=== PATIENT | male | born 1945 | race Caucasian/White ===

== ENCOUNTER 2016-12-19 08:07 | Outpatient (CLI) | payer MEDICARE ==
[~2016-12-19] VITALS: Ht 177.8 cm; Wt 102.3 kg
--- NOTE | ~2016-12-19 | HEMODYNAMI ---
PATIENT:ALICE MERCADO MEDICAL RECORD: [id number] : 49 LOCATION:[facility] ADMISSION DATE: 12/19/16 Generatedon:12/19/201610:09 Patient name: ALICE MERCADO Patient #: [id number] SSN: DO B: 1945 Date of study: 12/19/2016 Page: Of Hemodynamic Procedure Report Patient Data Patient Demographics Procedure consent was obtained First Name: ALICE Gender: Male Last Name: ROGELIO : 1945 [facility] Initial: L Age: 71 year(s) Patient #: [id number] Race: Unknown Additional ID: [id number] Contact details [address]: [address] [place] [address] [place] State: [place] City: [place] Zip code: [address] Past Medical History Allergies: No known allergies Admission Admission Data Admission Date: 12/19/2016 Admission Time: 8:07 Admit Source: Other Lab Results Lab Result Date: 12/19/2016 Lab Result Time: 8:45 Biochemistry Name Units Result Min Max BUN mg/dl 19 --(----)*- 7 18 Creatinine mg/dl 1 --(--*-)-- 0.6 1.3 CBC Name Units Result Min Max Hematocrit % 44.4 --(*---)-- 42 54 Hemoglobin g/dl 15.3 --(-*--)-- 13.5 17.5 Procedure Procedure Types Cath Procedure Diagnostic Procedure C [place] w/Coronaries PCI Procedure Coronary Stent Initial Miscellaneous Procedures Moderate Sedation up to 30 minutes Procedure Description Procedure Date Procedure Date: 12/19/2016 Procedure Start Time: 9:39 Procedure End Time: 10:06 Procedure Staff Name Function Aliza Gandhi RT Scrub Cullen Gamez RN Linotypist Naeem Cruz RN Nurse Sanchez Lu MD Performing Physician Stef Mendoza RT Monitor Procedure Data Cath Procedure Fluoroscopy Diagnostic fluoroscopy Total fluoroscopy Time: 2.2 time: 2.2 min min Diagnostic fluoroscopy Total fluoroscopy dose: 575 dose: 575 mGy mGy Contrast Material Contrast Material Type Amount (ml) Isovue 300 83 Entry Location Entry Primary Successful Side Size Upsize Upsize Entry Closure Heller ccessful Closure Location (Fr) 1 (Fr) 2 (Fr) Remarks Device Remarks Radial Right 6 Fr Mechanical artery Short Compression Femoral Right 5 Fr 6 Fr Exoseal artery Short Estimated blood loss: 10 ml Diagnostic catheters Device Type Used For End Catheter Placement Cordis 5Fr Pigtail Procedure Catheter (MP) Cordis 5Fr JL 4.0 Procedure Catheter (MP) Cordis 5Fr 3DRC Catheter Procedure (MP) Procedure Complications No complications Procedure Medications Medication Administration Route Dosage Oxygen NC 2 l/min Lidocaine 2% added to field 20 Heparin Flush Bag added to field 2 bags (1000units/500ml NS) 0.9% NaCl I.V. 100 ml/hr Versed I.V. 1 mg Fentanyl I.V. 50 mcg Radial Cocktail I.A. 1 syringe (Verapomil 2mg/Nitro 400mcg/Heparin 1500units) Versed I.V. 1 mg Fentanyl I.V. 50 mcg Versed I.V. 0.5 mg Fentanyl I.V. 50 mcg Heparin Bolus I.V. 4000 units Hemodynamics Rest HGB: 15.3 (g/dl) Heart Rate: 44 (bpm) Snapshots Pre Cath Intra NCS Post Cath Vital Signs Time Heart Resp SPO2 etCO2 AP7nhzn NIBP (mmHg) Rhythm Pain Sedation Rate (ipm) (%) (mmHg) (mmHg) Status Level (bpm) 9:18:18 53 18 96 0 0 No Cuff NSR 0 (11) 10(A) , No pain 9:23:25 45 17 98 0 0 175/75(129) NSR 0 (11) 10(A) , No pain 9:27:53 54 19 99 0 0 139/83(106) NSR 0 (11) 10(A) , No pain 9:32:59 44 17 98 0 0 141/76(107) NSR 0 (11) 10(A) , No pain 9:37:21 46 17 98 0 0 137/73(110) NSR 0 (11) 9(A) , No pain 9:41:43 58 16 97 0 0 109/64(78) NSR 0 (11) 9(A) , No pain 9:46:38 51 17 95 0 0 118/68(101) NSR 0 (11) 9(A) , No pain 9:50:54 89 15 94 0 0 122/67(96) NSR 0 (11) 9(A) , No pain 9:55:12 47 16 96 0 0 125/62(99) NSR 0 (11) 9(A) , No pain 10:00:11 48 17 96 0 0 Measuring NSR 0 (11) 10(A) , No pain 10:01:35 46 7 95 0 0 Time NSR 0 (11) 10(A) Exceeded , No pain Medications Time Medication Route Dose Verified Delivered Reason Notes Effectiveness by by 9:20:37 Oxygen NC 2 l/min Sanchez Buffie used for Tabitha Cruz RN procedure 9:20:44 Lidocaine 2% added 20ml Sanchez Sanchez for local to vial Tabitha Lu MD anesthetic field 9:21:05 Heparin Flush added 2 bags Sanchez Bradford used for Bag to Tabitha Lu MD procedure (1000units/500ml field NS) 9:21:13 0.9% NaCl I.V. 100 Sanchez Buffie Per physician ml/hr Tabitha Cruz RN 9:36:09 Versed I.V. 1 mg Sanchez Glynnie for sedation Tabitha Cruz RN 9:36:15 Fentanyl I.V. 50 mcg Sanchez Glynnie for sedation Tabitha Cruz RN 9:40:29 Radial Cocktail I.A. 1 Sanchez Sanchez for (Verapomil syringe Tabitha Lu MD vasodilation 2mg/Nitro 400mcg/Hepari 9:40:39 Versed I.V. 1 mg Sanchez Buffie for sedation Tabitha Cruz RN 9:40:43 Fentanyl I.V. 50 mcg Sanchez Buffie for sedation Tabitha Cruz RN 9:44:55 Versed I.V. 0.5 mg Sanchez Buffie for sedation Tabitha Cruz RN 9:44:59 Fentanyl I.V. 50 mcg Sanchez Buffie for sedation Tabitha Cruz RN 9:47:18 Heparin Bolus I.V. 4000 Sacnhez Glynnie for verif ied units Tabitha Cruz RN anticoagulation with dr lu Procedure Log Time Note 9:00:57 Cullen Gamez RN sent for patient. Start room use. 9:06:30 Informed consent obtained and on chart 9:06:36 Admit Source: Other 9:06:55 Diagnostic Cath status Elective 9:06:58 Time tracking: Regular hours 9:07:02 Plan of Care:Hemodynamics will remain stable., Cardiac rhythm will remain stable., Comfort level will be maintained., Respiratory function will remain adequate., Patient/ family verbilizes understanding of procedure., Procedure tolerated without complication., Recovers from procedure without complications.. 9:08:04 Lab Result : Creatinine 1 mg/dl 9:08:04 Lab Result : BUN 19 mg/dl 9:08:24 H&P Date Dictated: 11/26/2016 Within 30 days and on chart., H&P Addendum completed by physician on day of procedure. (MUST COMPLETE FOR ALL OUTPATIENTS). 9:14:21 Patient received from Pre/Post Procedure Room to CCL 1 Alert and oriented. Tansferred to table in Supine position. 9:14:22 Correct patient and procedure confirmed by team. 9:14:22 Warm blankets applied, and evans hugger turned on for patient comfort. 9:14:23 ECG and BP/O2 sat monitors applied to patient. 9:14:24 Full Disclosure recording started 9:17:28 Vital chart was started 9:20:37 Oxygen 2 l/min NC was administered by Naeem Cruz RN; used for procedure; 9:20:44 Lidocaine 2% 20ml vial added to field was administered by Sanchez Lu MD; for local anesthetic; 9:21:05 Heparin Flush Bag (1000units/500ml NS) 2 bags added to field was administered by Sanchez Lu MD; used for procedure; 9:21:13 0.9% NaCl 100 ml/hr I.V. was administered by Naeem Cruz RN; Per physician; 9:28:17 Baseline sample Acquired. 9:29:24 Rhythm: sinus rhythm 9:29:26 Pre-procedure instructions explained to patient. 9:29:27 Pre-op teaching completed and patient verbalized understanding. 9:29:28 Family in patients room. 9:29:30 Patient NPO since Midnight. 9:29:34 Patient allergic to No known allergies 9:29:36 Is the patient allergic to Iodine/contrast media? No. 9:29:37 Is patient on blood thinner?Yes 9:29:39 ACC The patient was administered the following blood thiners within the last 24 hours: ACCPlavix 9:29:44 Patient diabetic? No. 9:29:47 Previous problem with sedation/anesthesia? No ? 9:29:48 Snore? Yes 9:29:49 Sleep apnea? No 9:29:50 Deviated septum? No 9:29:51 Opens mouth fully? Yes 9:29:52 Sticks out tongue? Yes 9:29:53 Airway obstruction? No ? 9:29:55 Dentures? No ? 9:29:59 Modified Darrick's test Ulnar < 7 seconds 9:30:06 Patient pain scale 0/10 ?. 9:30:14 IV patent on arrival in left hand with 0.9% NaCl at [facility]. 9:30:52 Lab Result : Hematocrit 44.4 % 9:30:52 Lab Result : Hemoglobin 15.3 g/dl 9:30:56 Lab results completed and on chart. 9:30:59 Right Radial & Right Groin area was prepped with chlora-prep and draped in sterile fashion 9:31:00 Alarms reviewed by R. N. 9:31:01 Sharps counted by scrub and verified by R.N. 9:31:07 Use device set Radial Dx 9:31:08 MBrace Wrist Support opened to sterile field. 9:31:09 Tegaderm 4 x 4 opened to sterile field. 9:31:10 Acist Manifold opened to sterile field. 9:31:11 Acist Hand Control opened to sterile field. 9:31:12 Medline Cath Pack opened to sterile field. 9:31:12 Acist Syringe opened to sterile field. 9:31:13 St Harvey 260cm J .035 wire opened to sterile field. 9:31:13 Terumo 6Fr Slender Glidesheath opened to sterile field. 9:31:13 Bag Decanter opened to sterile field. 9:31:17 Physician paged 9:32:26 Zero performed for pressure channel P1 9:35:33 --------ALL STOP TIME OUT------ 9:35:33 Physician arrived 9:35:34 Final Timeout: patient, procedure, and site verified with staff and physician. All members of the team are in agreement. 9:35:35 Right Radial & Right Groin site verified by team. 9:35:38 Physical assessment completed. ASA score P 2 - A patient with mild systemic disease as per Sanchez Lu MD. 9:35:42 Sedation plan: IV Moderate Sedation Versed, Fentanyl 9:36:09 Versed 1 mg I.V. was administered by Naeem Cruz RN; for sedation; 9:36:15 Fentanyl 50 mcg I.V. was administered by Naeem Cruz RN; for sedation; 9:39:04 Procedure started. 9:39:11 Local anesthetic to right radial artery with Lidocaine 2% by Sanchez Lu MD.INITIAL ACCESS ONLY 9:39:42 A 6 Fr Short sheath was inserted into the Right Radial artery 9:40:29 Radial Cocktail (Verapomil 2mg/Nitro 400mcg/Heparin 1500units) 1 syringe I.A. was administered by Sanchez Lu MD; for vasodilation; 9:40:39 Versed 1 mg I.V. was administered by Naeem Cruz RN; for sedation; 9:40:43 Fentanyl 50 mcg I.V. was administered by Naeem Cruz RN; for sedation; 9:42:51 GUIDE Terumo 6Fr Cambria 4.0 guide catheter opened to sterile field. 9:43:26 unable to proceed with radial approach due to loop. 9:43:28 Catheter removed. 9:43:30 Local anesthetic to right femoral artery with Lidocaine 2% by Sanchez Lu MD.ADDITIONAL ACCESS 9:43:39 Terumo 5Fr Cable Sheath opened to sterile field. 9:43:48 Use device set Multipack Set 9:43:49 Diagnostic Infinity 5Fr Multipack catheter opened to sterile field. 9:43:59 A 5 Fr sheath was inserted into the Right Femoral artery 9:44:04 A Cordis 5Fr Pigtail Catheter (MP) was advanced over the wire and used for Procedure. 9:44:10 LV gram done using COHEN 9:44:12 Injector settings: Ml/sec: 10, Volume: 20, 9:44:19 EF : 60 % 9:44:39 Catheter exchanged over wire. 9:44:43 A Cordis 5Fr JL 4.0 Catheter (MP) was advanced over the wire and used for Procedure. 9:44:45 LCA angiography performed. 9:44:55 Versed 0.5 mg I.V. was administered by Naeem Cruz RN; for sedation; 9:44:59 Fentanyl 50 mcg I.V. was administered by Naeem Cruz RN; for sedation; 9:45:07 Catheter exchanged over wire. 9:45:11 A Cordis 5Fr 3DRC Catheter (MP) was advanced over the wire and used for Procedure. 9:45:45 RCA angiography performed. 9:47:01 Catheter removed. 9:47:11 Terumo 6Fr Cable Sheath opened to sterile field. 9:47:12 Merit BasixCompak Inflation Kit opened to sterile field. 9:47:18 Heparin Bolus 4000 units I.V. was administered by Naeem Cruz RN; for anticoagulation; verified with dr lu 9:47:19 Real Whisper J 300cm 0.014 guide wire opened to sterile field. 9:49:20 Sheath upsized to a 6 Fr Short. 9:49:31 Medtronic Launcher 6Fr 3DRC guide catheter opened to sterile field. 9:49:43 6 Fr 3drc guide catheter was inserted over the wire 9:49:47 whisper wire advanced. 9:50:07 Wire advanced across lesion. 9:51:11 Inflation Number: 1 A Medtronic Integrity 2.5 X 22 stent was prepped and advanced across the R PDA. The stent was deployed at 11 BETSY for 0:11 (min:sec). 9:51:18 Wire removed. 9:51:18 Stent catheter was removed intact over wire. 9:51:19 Guide catheter removed. 9:52:10 Cordis 6Fr Exoseal opened to sterile field. 9:54:39 Sheath removed intact; hemostasis achieved with Exoseal to the Right Femoral artery. 9:54:44 Sheath removed intact; hemostasis achieved with Mechanical Compression to the Right Radial artery. 9:54:45 Procedure ended.(Physican Out) 9:55:44 Fluoroscopy time 02.20 minutes. 9:55:47 Fluoroscopy dose: 575 mGy 9:55:47 Flurop Dose total: 575 9:55:55 Contrast amount:Isovue 300 83ml. 9:55:57 Sharps counted by scrub and verified by R.N. 9:56:00 TR band inflated with 12cc of air. 9:56:01 Insertion/operative site no bleeding no hematoma. 9:56:04 Post-op/insertion site Right Femoral artery dressed using a 4 x 4 and Tegaderm. 9:56:34 Post Procedure Pulses reassessed and unchanged 9:56:37 Post-procedure physical assessment completed. ASA score P 2 - A patient with mild systemic disease as per Sanchez Lu MD. 9:57:24 St Harvey Femstop Arch Gold opened to sterile field. 10:00:18 Vital chart was stopped 10:01:56 Femstop placed over the right femoral artery at 163 mmHg. Hemostasis achieved. 10:02:04 Post procedure rhythm: unchanged. 10:02:07 Estimated blood loss: 10 ml 10:02:36 Patient needs reinforcement of post procedure teaching. 10:02:36 Post procedure instruction explained to patient.Patient verbalizes understanding. 10:02:49 Procedure type changed to Cath procedure, Diagnostic procedure, LHC, LHC w/Coronaries, PCI procedure, Coronary Stent Initial, Miscellaneous Procedures, Moderate Sedation up to 30 minutes 10:05:51 Procedure and supply charges have been captured, reviewed, submitted and are correct. 10:05:54 Procedure Complication : No complications 10:05:56 Report given to Pre/Post Procedure Room. 10:05:59 Patient transfered to Pre/Post Procedure Room with Stretcher. 10:06:04 Full Disclosure recording stopped 10:06:04 Procedure ended. 10:06:09 End room use (Document Last) Intervention Summary Intervention Notes Time ActionType Lesion and Equipment Action# Pressure Duration Attributes Used 9:51:11 Place stent R PDA Medtronic 1 11 00:11 Integrity 2.5 X 22 stent Device Usage Item Name Manufacture Quantity Catalog Hospital Part Current Minimal Lot# / Number Charge Number Stock Stock Serial# Code [place] [address] 140-0250-00 311295 86013 [id number] 5 Wrist Vascular Support Dynamics Tegaderm 4 3M 1 1626W 701338 053783 270404 5 x 4 Acist Acist 1 92361 500941 450718 974757 5 Manifold Medical Systems Inc Acist Hand Acist 1 86204 544201 891949 390552 5 Control Medical Systems Inc Acist Acist 1 13176 637059 131327 429288 20 Syringe Medical Systems Inc Medline Cardinal 1 [id number] 294996 37462 380089 5 Cath Pack Health Bag Microtek 1 2001S 1279827 68296 626657 5 Decanter Medical Inc. Terumo 6Fr Terumo 1 [id number] 111430 075924 851378 [address] St Harvey 1 421651 756532 279869 339820 30 260cm J .035 wire GUIDE Terumo 1 63-4090 156914 063071 858606 1 Terumo 6Fr Cambria 4.0 guide catheter Terumo 5Fr Terumo 1 [id number] 564535 254140 446390 40 Cable Sheath Diagnostic Cardinal 1 [id number] 893109 25370 845023 30 Infinity Health 5Fr Multipack catheter Cordis 5Fr Cardinal 1 250051 5 Pigtail Health Catheter (MP) Cordis 5Fr Cardinal 1 842687 5 JL 4.0 Health Catheter (MP) Cordis 5Fr Cardinal 1 013965 5 3DRC Health Catheter (MP) Terumo 6Fr Terumo 1 AFO928 872469 608210 086298 40 Cable Sheath Merit Merit 1 [id number] 399652 533880 331035 15 [facility] Hospit[facility] Medical Inflation Kit Real Real 1 [id number] 225426 927978 874393 5 Whisper J Vascular 300cm 0.014 guide wire Medtronic Medtronic 1 [id number] 144967 652802 304240 1 Launcher 6Fr 3DRC guide catheter Medtronic Medtronic 1 [id number] 170155 465358 4 [id number] Integrity 2.5 X 22 stent Cordis 6Fr Cardinal 1 EX600 740832 551347 480769 10 [facility] Health [facility] Harvey St Harvey 1 B14495 345873 149953 381955 5 Femstop Arch Gold Signature Audit Mckean Stage Time Signature Unsigned Intra-Procedure 12/19/2016 Stef Mendoza RT(R) 10:06:42 AM RT(R) 12/19/2016 10:08:07 AM Intra-Procedure 12/19/2016 Stef Mendoza 10:09:31 AM RT(R) Signatures Monitor : Stef Mendoza RT Signature : Date : Time : [facility] [address] [place] [address]
[2016-12-19] MEDS ORDERED: LEVOTHYROXINE100 MCG PO (08:32)
[2016-12-19] MEDS ORDERED: FLOMAX0.4 MG PO (08:32)
[2016-12-19] MEDS ORDERED: PROSCAR5 MG PO (08:32)
[2016-12-19] MEDS ORDERED: CALTRATE 600 M600 M1 PO (08:33)
[2016-12-19] MEDS ORDERED: OMEPRAZOLE20 M1 PO (08:33)
[2016-12-19] MEDS ORDERED: VITAMIN C1000 MG PO (08:34)
[2016-12-19] MEDS ORDERED: BAYER CHEWABLE81 MG PO (08:34)
[2016-12-19] MEDS ORDERED: POTASSIUM99 M1 PO (08:34)
[2016-12-19] MEDS ORDERED: SAW PALMETTO450 MG PO (08:34)
[2016-12-19] MEDS ORDERED: BANOPHEN25 MG PO (08:35)
[2016-12-19] MEDS ORDERED: PLAVIX75 MG PO (08:35)
[2016-12-19] MEDS ORDERED: OMEGA-3100 MG PO (08:36)
[2016-12-19] MEDS ORDERED: FOLATE0.4 MG PO (08:36)
[2016-12-19] MEDS ORDERED: LUTEIN20 MG PO (08:36)
[2016-12-19] MEDS ORDERED: GLUCOSAMINE & C1 CAP PO (08:36)
[2016-12-19] MEDS ORDERED: GINKGO BILOBA120 MG PO (08:36)
[2016-12-19 08:38] VITALS: BP 153/82; Ht 177.8 cm; Wt 102.3 kg
[2016-12-19 09:01] LABS: CALC OSMOLALITY 286 mosm/kg (275-300); CARBON DIOXIDE 30.1 mmol/L (21.0-32.0); CHLORIDE - SERUM 106 mmol/L (98-107); GLUCOSE 107 mg/dL (74-106); POTASSIUM - SERUM 4.3 mmol/L (3.5-5.1); SODIUM 143 mmol/L (136-145); UREA NITROGEN 19 mg/dL (7-18); eGFR NON AFRICAN AMERICAN 79 mL/min (90-120)
[2016-12-19 09:18] LABS: BASOPHILS 0.6 % (0-2); EOSINOPHILS 2.4 % (0-7); HEMATOCRIT 44.4 % (42.0-54.0); HEMOGLOBIN 15.3 g/dL (13.5-17.5); IMMATURE GRANULOCYTES 0.2 % (0-5); LYMPHOCYTES 33.1 % (15-50); MCHC 34.5 g/dL (31.0-37.0); MCV 98.7 fL (80.0-100.0); MEAN PLATELET VOLUME 10.8 fL (7.4-10.4); MONOCYTES 9.6 % (2-11); NEUTROPHILS 54.1 % (40-80); PLATELET COUNT 118 10x3/uL (130-400); RDW 12.9 % (11.5-14.5); WBC 4.9 10x3/uL (4.8-10.8)
--- NOTE | 2016-12-19 10:29 | NUR ---
1015 RECIEVED TO ROOM VIA STRETCHER FROM BROOMMAKING SUPERVISOR TEAM WITH TR BAND TO R/WRIST CDI AND FEMSTOP TO R/GROIN WITH PRESSURE AT 139 HEMATOMA MARKED. VSS WITH CHEST PAIN DENIED AT SIDE
--- NOTE | 2016-12-19 10:34 | NUR ---
DR MARIO AT BEDSIDE TALKING TO AND PATIENT. FEMSTOP REMAINS IN PLACE WITH VSS
--- NOTE | 2016-12-19 11:00 | NUR ---
1100 HR REMAINS SB AT 40 WITH PRESSURE RELEASED FROM FEMSTOP. BP AT 133/72 WITH CHEST PAIN DENIED PULSES PRESENT AND MARKED.
--- NOTE | 2016-12-19 11:46 | NUR ---
RESTING QUIETLY WITH EYES CLOSED. FEMSTOP IN PLACE WITH NO PRESSURE AT SITE. SB RATE 38 CHEST PAIN DENIED
--- NOTE | 2016-12-19 12:31 | NUR ---
REMAINS SB WITH CHEST PAIN DENIED. R/GROIN CDI NO BLEEDING NO HEMATOMA NOTED. SANDWICH AND WATER TO BEDSIDE
--- NOTE | 2016-12-19 12:42 | NUR ---
ALERT AND ORIENTED WITH AT BEDSIDE 6 FR EXOSEAL R/GROIN CDI NO BLEEDING NO HEMATOMA NOTED. KENNEDY BLEDSOE
--- NOTE | 2016-12-19 13:34 | NUR ---
PIV REMOVED WITH DRESSING APPLIED. PATIENT UP TO GET DRESSED FOR DISCHARGE HOME.
--- NOTE | 2016-12-19 13:41 | NUR ---
VERBAL AND WRITTEN DISCHARGE GONE OVER WITH PATIENT AND BOTH VERBALIZED UNDERSTANDING. TR BAND REMOVED WITH DRESSING APPLIED. NO BLEEDING NO HEMATOMA NOTED. TRANSPORTED VIA TO PARKING FOR TO DRIVE HOME CHEST PAIN DENIED.
--- NOTE | 2016-12-21 11:01 | OP ---
PATIENT NAME: ALICE MERCADO MEDICAL RECORD: [id number] :49 LOCATION:D.CAT ADMISSION DATE: SURGEON: RANDAL MARIO MD OPERATION DATE: 12/20/11 PROCEDURES: 1. Percutaneous transluminal coronary angioplasty stent right coronary artery. 2. Left heart catheterization. 3. Selective coronary angiography. 4. Left ventriculogram. INDICATION: 1. Angina. 2. Coronary artery disease. PROCEDURE IN DETAIL: After informed consent was obtained and after detailed explanation of risks, benefits, as well as alternative therapies, the patient elected to proceed with angiogram and angioplasty. The right femoral area was prepped and draped in a normal sterile fashion. The right femoral artery was cannulated via modified Seldinger technique with placement of 6-Luxembourgish sheath. All catheters exchanged through this sheath. FINDINGS: Left ventriculogram was performed in standard 30 degree COHEN view, reveals good cardiac wall motion throughout all segments. Overall ejection fraction 60%. SELECTIVE CORONARY ANGIOGRAPHY: 1. Left main is with no significant angiographic disease. 2. Left anterior descending has mild irregularities but no flow-limiting stenosis. 3. Left circumflex has mild irregularities but no flow-limiting stenosis. 4. Right coronary artery has 70-75% stenosis at the posterior descending artery. This correlates with the perfusion defect inferiorly on nuclear stress testing. PTCA STENT OF THE RIGHT CORONARY ARTERY: The stent used was a 2.5 X 22 millimeter Integrity stent. The result was 0% residual stenosis. OVERALL IMPRESSION: Successful percutaneous transluminal coronary angioplasty stent of the right coronary artery going from 70-75% initial stenosis to 0% residual stenosis. RANDAL MARIO MD at 1101 CC: [id number] DICTATION DATE: 12/19/16 1000 MENTAL HE[facility] UNIT LEAD PSYCHOLOGIST: DM 12/19/16 1121 DEP CLI 12/19/16 [place] [id number] [place] [address]
== END 2016-12-19 13:44 ==
LOC: D.CATH 08:07
PROVIDERS: Internal Medicine Interventional Cardiology
DX: I25.119 Atherosclerotic heart disease of native coronary artery with unspecified angina pectoris (principal); Z01.812 Encounter for preprocedural laboratory examination

== ENCOUNTER → 2018-05-13 09:28 | Outpatient (CLI) | payer MEDICARE ==
[2016-12-19 08:38] VITALS: BMI 32.3
--- NOTE | ~2018-05-13 | ST ---
PATIENT:ALICE MERCADO MEDICAL RECORD: [id number] SEX: M LOCATION:[facility] ORDER #: ADMISSION DATE: 05/13/18 AGE OF PATIENT: 73 REFERRING PHYSICIAN: INTERPRETING PHYSICIAN: RANDAL MARIO MD DATE OF SERVICE: 05/13/2018 INDICATIONS: Angina, coronary artery disease, hyperlipidemia. He was exercised on standard Hernandez protocol for 9 minutes completing stage III, achieving greater than 85% of target heart rate response with 32 mCi of sestamibi injected at peak stress, 11 mCi were used previously for rest images. FINDINGS: Gated SPECT reveals preserved ejection fraction at 65% with good wall motion and thickening and brightening throughout all segments. SPECT imaging Cardiolite was used as myocardial fusion agent. There is homogeneous uptake throughout all segments at rest and stress with no evidence of inducible ischemia or previous infarction. OVERALL IMPRESSION: 1. This is a normal nuclear stress test with no evidence of inducible ischemia or previous infarction. 2. Gated SPECT reveals a preserved ejection fraction at 65%. In this patient with ongoing symptomatology, the current scan does not suggest the presence of hemodynamically significant coronary artery disease. Evaluate noncardiac etiology of chest pain. TRANSINT:[id number] Voice Confirmation ID: [id number] DOCUMENT ID: [id number] RANDAL MARIO MD at 1025 CC: ALVIN KATZ MD [id number] DICTATION DATE: 05/14/18 1111 ARCHEOLOGIST CLASSICAL: 05/15/18 0044 DEP CLI 05/13/[address] [address]
[~2018-05-13 09:28] MED LIST: BANOPHEN25 MG PO; BAYER CHEWABLE81 MG PO; CALTRATE 600 M600 M1 PO; FLOMAX0.4 MG PO; FOLATE0.4 MG PO; GINKGO BILOBA120 MG PO; GLUCOSAMINE & C1 CAP PO; LEVOTHYROXINE100 MCG PO; LUTEIN20 MG PO; OMEGA-3100 MG PO; OMEPRAZOLE20 M1 PO; PLAVIX75 MG PO; POTASSIUM99 M1 PO; PROSCAR5 MG PO; SAW PALMETTO450 MG PO; VITAMIN C1000 MG PO
== END | disposition home or self-care (01) ==
LOC: D.HCCARDIO 09:28
DX: I25.119 Atherosclerotic heart disease of native coronary artery with unspecified angina pectoris (principal)

== ENCOUNTER 2020-10-25 09:05 | Day surgery (SDC) | payer OTHER ==
[~2020-10-25] VITALS: Ht 177.8 cm; Wt 94.1 kg
[2020-10-25 09:36] LABS: HEMATOCRIT 42.8 % (42.0-54.0); HEMOGLOBIN 14.4 g/dL (13.5-17.5); LYMPHOCYTES 27.7 % (15-50); MCH 33.5 pg (26.0-34.0); MCHC 33.7 g/dL (31.0-37.0); MCV 99.3 fL (80.0-100.0); MEAN PLATELET VOLUME 8.4 fL (7.4-10.4); MONOCYTES 7.5 % (2-11); NEUTROPHILS 60.8 % (40-80); PLATELET COUNT 131 10x3/uL (130-400); RBC 4.31 10x6/uL (4.20-6.10); RDW 13.5 % (11.5-14.5); WBC 4.6 10x3/uL (4.8-10.8)
[2020-10-25 09:44] LABS: CALC OSMOLALITY 284 mosm/kg (275-300); CALCIUM 9.3 mg/dL (8.5-10.1); CARBON DIOXIDE 30.5 mmol/L (21.0-32.0); CHLORIDE - SERUM 106 mmol/L (98-107); GLUCOSE 110 mg/dL (74-106); POTASSIUM - SERUM 4.5 mmol/L (3.5-5.1); SODIUM 142 mmol/L (136-145); UREA NITROGEN 15 mg/dL (7-18); eGFR NON AFRICAN AMERICAN 78 mL/min (90-120)
[2020-10-25 11:48] VITALS: BP 181/78; Ht 177.8 cm; Wt 94.1 kg
--- NOTE | 2020-10-25 15:49 | NUR ---
1450 IV DC'ED WITH CATH INTACT. DRESSING. Annalise Sotelo.NWinston 1510 DRESSED AWAKE & ALERT. REQUEST FOR HEALTH INFORMATION FILLED OUT & FAXED TO [facility] COPY OF OPERATIVE NOTE TO PATIENT ALONG WITH RX: PEPCID 40MG, MED REC, SHEET LISTING NSAIDS, RTC APPT, & [facility] POST ENDOSCOPY D/C INSTRUCTIONS. PT VOICED UNDERSTANDING. TO PRIVATE CAR PER WHEELCHAIR BY THIS NURSE. HOME WITH MRS. MERCADO. Annalise ARIAS R.N.
--- NOTE | 2020-10-25 16:13 | OP ---
PATIENT NAME: ALICE MERCADO MEDICAL RECORD: [id number] :49 LOCATION:D.OPS ADMISSION DATE: SURGEON: MORGAN PIERRE MD DATE OF OPERATION: 10/25/2020 PREOPERATIVE DIAGNOSES: 1. History of colon polyps. 2. Gastroesophageal reflux disease. POSTOPERATIVE DIAGNOSES: 1. History of colon polyps. 2. Gastroesophageal reflux disease. 3. Single chronic-appearing gastric ulcer in the fundus of the stomach. 4. Moderately sized hiatal hernia. 5. No colon polyps or masses. 6. LA grade I distal esophagitis. 7. Left inferior prostate nodule. PROCEDURE: 1. Esophagogastroduodenoscopy with antral biopsies. 2. Total colonoscopy to cecum. SURGEON: Morgan Pierre MD CASEWORKER PROTECTIVE SERVICES: None. BLOOD LOSS: Minimal. ANESTHESIA: IV sedation. COMPLICATIONS: None. The risks, possible complications, and alternatives of the procedure were explained to the patient. He elects to proceed. ENDOSCOPIC COURSE: The patient was conveyed to the endoscopy suite electively on 10/25/2020. IV sedation was induced by the anesthesia staff. A bite block was inserted. A gastroscope was inserted into the mouth. It was advanced easily into the hypopharynx. The esophagus was easily intubated as were the stomach and duodenum. Upon withdrawal, retroflexed and angulus views were obtained. Antral biopsies were obtained to rule out H. pylori. The endoscope was then withdrawn under direct vision. The patient was turned 180 degrees and placed in the Swartz position. Digital rectal examination was performed. It revealed pea-sized left inferior prostatic nodule. The prostate was slightly enlarged and was otherwise symmetric. A colonoscope was inserted through the anus. It was easily advanced to the cecum. The prep was adequate. I slowly withdrew the endoscope. I irrigated and aspirated extensively. A combination of normal imaging and narrow band imaging was utilized. There were no colonic polyps or masses. I dragged the folds. The pullback was greater than a 15-minute pullback. A retroflexed view was obtained in the rectum. I then unretroflexed the scope and removed it under direct vision. We will see the patient in the office in 2 to 3 weeks. I will plan for his next OPERATIVE REPORT [id number] ALICE MERCADO surveillance colonoscopy to take place in 3 years. I told him that the prostate nodule will need to be followed up. I am going to place him on Pepcid 40 mg daily for 45 days to see if we can get clearing of the gastric ulcer. TRANSINT:[id number] Voice Confirmation ID: [id number] DOCUMENT ID: [id number] MORGAN PIERRE MD at 1613 CC: [id number] DICTATION DATE: 10/25/20 142 MALE INFERTILITY SPECIALIST: 10/25/20 1436 [facility] 10/25/20 [place] [id number]
== END 2020-10-25 15:10 | disposition home or self-care (01) ==
LOC: D.OPS 09:05
PROVIDERS: Anesthesiology; ATTEND Surgery
DX: K25.9 Gastric ulcer, unspecified as acute or chronic, without hemorrhage or perforation (principal); K44.9 Diaphragmatic hernia without obstruction or gangrene; Z86.010 Personal history of colon polyps; N40.2 Nodular prostate without lower urinary tract symptoms; K21.00 Gastro-esophageal reflux disease with esophagitis, without bleeding; Z12.11 Encounter for screening for malignant neoplasm of colon; E03.9 Hypothyroidism, unspecified; E78.5 Hyperlipidemia, unspecified
CPT/HCPCS: 43239; G0121